=== PATIENT | female | born 1980 | race African-American/Black ===

== ENCOUNTER 2021-04-18 14:14 | Emergency (ER) | payer OTHER ==
[~2021-04-18] VITALS: Ht 172.7 cm; Wt 61.2 kg
--- NOTE | 2021-04-18 14:40 | NUR ---
receved pt 41 yrs female c/o rectale pain and bleeding for 5 days awke and alert no active bleeding at this time seen by dr. sellers
[2021-04-18] MEDS ORDERED: LIDOCAINE 4% TOPICAL 50 ML BOTTLE TP ONE (14:45)
[2021-04-18] MEDS ORDERED: LIDOCAINE 4% TOPICAL 50 ML BOTTLE ONE (14:58)
[2021-04-18 15:56] LABS: *URINE HCG, QUAL NEGATIVE (NEGATIVE)
[2021-04-18] MEDS ORDERED: KETOROLAC TROMETHAMINE 30 MG INJ IVP ONE (16:00)
--- NOTE | 2021-04-18 16:15 | NUR ---
c/o rectale pain tradole 30 mg iv given no rectale active bleeding
[2021-04-18] MEDS ORDERED: KETOROLAC TROMETHAMINE 30 MG INJ ONE (16:16)
[2021-04-18] MEDS ORDERED: MINERAL OIL FLEET ENEMA 133 ML BOTTLE RC ONE ×2 (16:30→16:52)
--- NOTE | 2021-04-18 17:00 | NUR ---
fleet Enema done tolorated procedure will no rectale bleeding
--- NOTE | 2021-04-18 18:18 | NUR ---
pt had normale BM SUCCESS feeling batter and resolve abdomin soft rectale pain controle
[2021-04-18] MEDS ORDERED: HYDR28.316 RC (18:25)
[2021-04-18] MEDS ORDERED: HYDR25SU33 RC ×2 (18:25)
--- NOTE | 2021-04-18 18:45 | NUR ---
d/c instraction given to pt fully and verblized understood d/c home with rx and fallow up care
[2021-04-18 18:54] VITALS: BP 140/78
== END 2021-04-18 19:07 | disposition home or self-care (01) ==
LOC: ER 14:14
DX: K56.41 Fecal impaction (principal); K64.4 Residual hemorrhoidal skin tags; K58.9 Irritable bowel syndrome, unspecified
CPT/HCPCS: 74021; 84703; 96374; 99284; J1885; A4663

== ENCOUNTER 2021-04-28 19:41 | Inpatient (IN) | payer OTHER ==
[~2021-04-28] VITALS: Ht 172.7 cm; Wt 59.9 kg
[~2021-04-28 19:41] MED LIST: HYDR25SU33 RC; HYDR28.316 RC
--- NOTE | 2021-04-28 20:02 | NUR ---
pt came to ER c/o painful hemorrhoids that began on 04/13/2021.
--- NOTE | 2021-04-28 20:08 | NUR ---
DR. CARMEN AT BEDSIDE, MSE IN PROGRESS.
--- NOTE | 2021-04-28 20:24 | NUR ---
MORRIS CARMEN FOR PERINEAL AREA EXAM.
[2021-04-28] MEDS ORDERED: MORPHINE SULFATE 4 MG/1 ML DISP.SYRIN IM ONE (20:30)
[2021-04-28] MEDS ORDERED: MORPHINE SULFATE 4 MG/1 ML DISP.SYRIN ONE (20:33)
[2021-04-28] MEDS ORDERED: IV NORMAL SALINE 1000 ML BAG IV ONE (20:45)
--- NOTE | 2021-04-28 20:56 | NUR ---
pt signed consent form for ct abd pelvis with contrast. labs drawn from iv start. blood sent to the lab.
[2021-04-28 20:58] LABS: HEMATOCRIT 35.6 % (31.2-41.9); MEAN CORPUSCULAR VOLUME 82.1 fL (75.5-95.3); PLATELET COUNT (AUTO) 334 K/uL (179-408)
[2021-04-28] MEDS ORDERED: IV NORMAL SALINE 250 ML IV ONE (21:04)
[2021-04-28] MEDS ORDERED: SWABABLE VALVE TRANSFER SET EA MC ONE (21:04)
[2021-04-28] MEDS ORDERED: IOHEXOL 300MG/ML 100 ML INFUS..BTL ONE (21:04)
[2021-04-28 21:10] LABS: BILIRUBIN,DIRECT 0.2 mg/dL (0.0-0.2); BILIRUBIN,TOTAL 0.8 mg/dL (0.2-1.0); CREATININE 0.7 mg/dL (0.6-1.3); TOTAL PROTEIN, SERUM 7.2 g/dL (6.4-8.2)
[2021-04-28 21:12] LABS: *OCCULT BLOOD STOOL POSITIVE (NEGATIVE)
[2021-04-28 21:15] LABS: POTASSIUM 2.6 mmol/L (3.5-5.1)
--- NOTE | 2021-04-28 21:28 | NUR ---
PT TAKEN DOWN FOR CT.
[2021-04-28] MEDS ORDERED: POTASSIUM CHLORIDE 20 MEQ TAB.PRT.SR PO ONE (21:45)
[2021-04-28] MEDS: MAGNESIUM SULFATE/D5W 100 ML IV SCH ×2 (21:45→22:16)
[2021-04-28] MEDS: POTASSIUM CHLORIDE 50 ML IV SCH ×2 (21:45→23:47)
--- NOTE | 2021-04-28 21:54 | NUR ---
PT RETURNED FROM CT, STABLE CONDITION.
[2021-04-28] MEDS ORDERED: CIPROFLOXACIN IV 400 MG in PREMIXED 1 EACH IV ONE (22:30)
[2021-04-28] MEDS ORDERED: METRONIDAZOLE 500 MG/NS 100 ML PIGGYBACK IV ONE (22:30)
[2021-04-28] MEDS ORDERED: METRONIDAZOLE 500 MG/NS 100ML 100 ML IV ONE (22:34)
--- NOTE | 2021-04-28 22:59 | NUR ---
CALLED DR. SALINAS AT .
--- NOTE | 2021-04-28 23:03 | NUR ---
CALLED DR. PARKS AT [phone], LEFT VOICEMAIL.
--- NOTE | 2021-04-28 23:04 | NUR ---
CALLED [facility] FOR PANEL CALL, DR. RUSTY RAMIREZ.
[2021-04-28] MEDS ORDERED: Z GUARD REMEDY PASTE 57 GM TUBE TOP PRN (23:15)
[2021-04-28] MEDS ORDERED: MAGNESIUM HYDROXIDE 30 ML LIQUID UDC PO PRN (23:15)
[2021-04-28] MEDS ORDERED: ONDANSETRON 4 MG/2 ML VIAL IV PRN (23:15)
[2021-04-28] MEDS ORDERED: IV NS 1000 ML 1,000 ML IV PRN (23:15)
--- NOTE | 2021-04-28 23:43 | NUR ---
DR. PARKS CALLED BACK.
[2021-04-29 00:32] LABS: *BILIRUBIN,URIN NEGATIVE (NEGATIVE); *BLOOD, URINE 2+ (NEGATIVE); *CLARITY,URINE SLIGHTLY CLOUDY (CLEAR); *COLOR,URINE YELLOW (YELLOW); *KETONES,URINE 4+ (NEGATIVE); *UROBILINOGEN,URINE 0.2 E.U./dl (NORMAL); LEUKOCYTE ESTERASE ,URINE NEGATIVE (NEGATIVE); NITRITE, URINE NEGATIVE (NEGATIVE); UGLUCOSE NEGATIVE (NEGATIVE)
[2021-04-29 00:34] LABS: *URINE HCG, QUAL NEGATIVE (NEGATIVE)
--- NOTE | 2021-04-29 00:39 | NUR ---
report given to Khadra STREET pt to go to room 303.
[2021-04-29 00:50] LABS: BACTERIA,URINE NONE SEEN /HPF (NONE SEEN); SQUAMOUS EPITHELIAL CELL,UR FEW /HPF (NONE SEEN)
--- NOTE | 2021-04-29 01:00 | NUR ---
Admitted a 41 years old female with Dx of Sybil rectal abscess. Patient AAOX4. In no apparent distress. Denies any SOB. Complain of rectal pain described as burning and sharp. Patient was given Morphine 4mg IV at the ER. Oral temp of 100.6. Cooling measure provided as well as Tylenol 650mg PO per order. IV site on right hand and left AC intact and patent. KCl IV infusing at this time. Routine admission care done. Plan of care initiated. Safety measure initiated and call light within reached. Will continue to monitor.
--- NOTE | 2021-04-29 01:10 | NUR ---
pt was transferred to room 303 with all belongings. pt in stable condition. admitted to tele unit. Trina VELAZQUEZ and Khadra RN at bedside to receive patient. endorsed that pt needs to have an additional 20meq of kcl to infuse. medication was taken with the pt.
[2021-04-29] MEDS: POTASSIUM CHLORIDE 50 ML IV SCH ×2 (01:21→02:12)
[2021-04-29] MEDS: ACETAMINOPHEN 325 MG TABLET PO PRN ×2 (01:30→20:24)
[2021-04-29 02:21] VITALS: BP 137/88
[2021-04-29 04:00] VITALS: BP 130/60
[2021-04-29] MEDS ORDERED: METRONIDAZOLE 500 MG/NS 100ML 100 ML IV ONE (05:09)
--- NOTE | 2021-04-29 05:49 | NUR ---
Patient AAOx4. In no acute distress. No complain of pain at this time. Denies any SOB. IV site on right AC and left wrist intact and patent. No adverse reaction noted from IV antibiotic. Needs attended to and met. Safety measure maintained and call light within reached.
[2021-04-29] MEDS ORDERED: METRONIDAZOLE 500 MG/NS 100ML 500 MG in PREMIXED 1 EACH IV SCH (06:00)
[2021-04-29 06:27] LABS: MEAN CORPUSCULAR HEMOGLOBIN 26.6 uug (24.7-32.8); PLATELET COUNT (AUTO) 304 K/uL (179-408)
[2021-04-29 06:40] LABS: ALANINE AMINOTRANSFERASE 10 U/L (14-59); ALKALINE PHOSPHATASE 49 U/L (50-136); ASPARTATE AMINOTRANSFERASE 9 U/L (15-37); BILIRUBIN,TOTAL 0.8 mg/dL (0.2-1.0); CARBON DIOXIDE 21 mmol/L (21-32); CHLORIDE 103 mmol/L (98-107); CREATININE 0.6 mg/dL (0.6-1.3); GLUCOSE 92 mg/dL (74-106); MAGNESIUM 2.1 mg/dL (1.8-2.4); PHOSPHOROUS 2.7 mg/dL (2.5-4.9); UREA NITROGEN, BLOOD 5 mg/dL (7-18)
--- NOTE | 2021-04-29 07:34 | NUR ---
Patient received in bed, speaking on the phone. A&Ox4. On room air. No signs of acute distress noted. Denies pain/discomfort at this time. Left wrist 22g running NS @75cc/hr. Right AC 20g intact and flushed. Safety measures maintained. Call light within reach. Will continue to monitor
[2021-04-29] MEDS ORDERED: CIPROFLOXACIN IV 400 MG in PREMIXED 1 EACH IV SCH (09:00)
[2021-04-29] MEDS ORDERED: MORPHINE SULFATE 2 MG/1 ML DISP.SYRIN IV PRN (11:30)
[2021-04-29 12:01] VITALS: BP 134/86
--- NOTE | 2021-04-29 12:55 | NUR ---
Pt seen by Dr Mancia. New orders noted
[2021-04-29] MEDS: PIPERACILLIN SODIUM/TAZOBACTAM 3.375 G in IV DEXTROSE 5% 100 ML IV SCH ×2 (15:19→22:53)
[2021-04-29] MEDS: MORPHINE SULFATE 4 MG/1 ML DISP.SYRIN IV PRN (15:28)
[2021-04-29 16:01] VITALS: BP 112/72
[2021-04-29] MEDS: IV D5/ 0.9% NACL 1,000 ML IV PRN ×2 (17:51→20:16)
[2021-04-29 20:00] VITALS: BP 124/74
--- NOTE | 2021-04-29 20:31 | NUR ---
Left wrist 22g running D5NS @ 75 cc/hr. PRN Tylenol administered for temp 0f 99.5, will continue to monitor
[2021-04-30 04:00] VITALS: BP 122/70
[2021-04-30] MEDS: PIPERACILLIN SODIUM/TAZOBACTAM 3.375 G in IV DEXTROSE 5% 100 ML IV SCH ×3 (05:36→21:15)
--- NOTE | 2021-04-30 05:54 | NUR ---
Patient to undergo I&D of heidy rectal abscess in AM. Consent formed signed, preop checklist complete
[2021-04-30] MEDS: MORPHINE SULFATE 4 MG/1 ML DISP.SYRIN IV PRN ×3 (06:23→16:45)
[2021-04-30] MEDS ORDERED: MIDAZOLAM HCL 2 MG/2 ML VIAL ONE (07:53)
[2021-04-30] MEDS ORDERED: FENTANYL CITRATE 250 MCG/5 ML AMPUL ONE (07:53)
[2021-04-30] MEDS ORDERED: HYDROMORPHONE 2 MG/1 ML DISP.SYRIN ONE (07:54)
--- NOTE | 2021-04-30 08:00 | NUR ---
Patient AAOx4. In no acute distress. No complain of pain at this time. Denies any SOB. Needs attended to and met. Safety measure maintained and call light within reached.
--- NOTE | 2021-04-30 08:29 | NUR ---
Patient was transfer to OR accompany by 2 nurse to undergo I&D of heidy rectal abscess with DR Wilson. Consent formed signed, preop checklist complete
[2021-04-30] MEDS ORDERED: LIDOCAINE-MPF 2% 5 ML VIAL IJ ONE (10:06)
[2021-04-30] MEDS ORDERED: METOCLOPRAMIDE HCL 10 MG/2 ML VIAL IV ONE (10:06)
[2021-04-30] MEDS ORDERED: CEFAZOLIN 1 G VIAL IM ONE (10:06)
[2021-04-30] MEDS ORDERED: SEVOFLURANE 250 ML BOTTLE IH ONE (10:06)
[2021-04-30] MEDS ORDERED: ONDANSETRON 4 MG/2 ML VIAL IV ONE (10:06)
[2021-04-30] MEDS ORDERED: PROPOFOL 200 MG/20 ML BOTTLE IV ONE (10:06)
[2021-04-30] MEDS ORDERED: MEPERIDINE 25 MG/1 ML DISP.SYRIN ONE (10:20)
--- NOTE | 2021-04-30 11:15 | NUR ---
RECEIVED PT. BACK FROM OR VIA BED ACCOMPANIED BY OR 2 RNs. PT IS AWAKE ALERT ORIENTED X4 ,RESPIRATION EVEN AND SPONTANEOUS. O2 SAT 98% at RA S/P I&D. IV INFUSING WELL. RECTAL DRESSING DRY AND INTACT WITH ORDER TO BE CHANGE TILL TOMORROW.PT PLACE ON LIQUID DIET TO PREVENT HARD STOOL.
[2021-04-30 12:06] VITALS: BP 119/72
[2021-04-30 15:48] VITALS: BP 131/74
--- NOTE | 2021-04-30 18:23 | NUR ---
Patient remain AAOx4. In no acute distress. Medicated with Morphine 4 mg /1ml PRN as order for complain of pain at surgical site. Denies any SOB. IV site on right AC and left wrist intact and patent. No adverse reaction noted from IV antibiotic. Ambulated to BR with assist voided x1 . Needs attended and met. Safety measure maintained and call light within reached. father remain at bed side
--- NOTE | 2021-04-30 19:30 | NUR ---
RECEIVED PT AWAKE, ALERT AND ORIENTEDX4. PT IN NO ACUTE DISTRESS. IV INTACT. FAMILY AT BEDSIDE. PT DRESSING INTACT AND SOILED. REINFORCE DRESSING DONE. SAFETY AND COMFORT PROVIDED. WILL CONTINUE TO MONITOR.
[2021-04-30 20:15] VITALS: BP 133/74
[2021-04-30] MEDS: ACETAMINOPHEN 325 MG TABLET PO PRN (20:44)
[2021-05-01] MEDS: MORPHINE SULFATE 4 MG/1 ML DISP.SYRIN IV PRN ×2 (01:38→18:16)
--- NOTE | 2021-05-01 01:48 | NUR ---
AT 0138/h MORPHINE 4MG GIVEN TO PT FOR PAIN ON RECTUM. PT TOLERATED IT WELL. WILL CONTINUE TO MONITOR.
[2021-05-01 04:02] VITALS: BP 104/66
[2021-05-01] MEDS: IV D5/ 0.9% NACL 1,000 ML IV PRN (06:12)
[2021-05-01] MEDS: PIPERACILLIN SODIUM/TAZOBACTAM 3.375 G in IV DEXTROSE 5% 100 ML IV SCH ×3 (06:13→21:47)
--- NOTE | 2021-05-01 06:27 | NUR ---
PT SLEPT INTERMITTENTLY. PT IN NO ACUTE DISTRESS. IV INTACT. DRESSING CHANGED. PT IN NO ACUTE DISTRESS.PTASKING FOR MEDICAL REORDS AND QUESTION REGARDING IT. TOLD HER THAT MEDICAL RECORDS WILL OPEN AT 0800H. PT STABLE. SAFETY AND COMFORT PROVIDED. ALL NEEDS ARE MET. WILL ENDORSE TO INCOMING NURSE FOR CONTINUITY OF CARE.
[2021-05-01 07:54] LABS: MEAN CORPUSCULAR HEMOGLOBIN 26.7 uug (24.7-32.8); PLATELET COUNT (AUTO) 358 K/uL (179-408)
[2021-05-01 08:10] LABS: BILIRUBIN,TOTAL 0.4 mg/dL (0.2-1.0); CREATININE 0.7 mg/dL (0.6-1.3); MAGNESIUM 1.8 mg/dL (1.8-2.4); PHOSPHOROUS 3.5 mg/dL (2.5-4.9); POTASSIUM 3.3 mmol/L (3.5-5.1); TOTAL PROTEIN, SERUM 6.7 g/dL (6.4-8.2)
[2021-05-01 08:42] LABS: THYROID STIMULATING HORMONE 0.954 mIU/mL (0.358-3.740)
[2021-05-01] MEDS ORDERED: POTASSIUM CHLORIDE 20 MEQ TAB.PRT.SR PO ONE (09:00)
[2021-05-01] MEDS: MIRALAX 17 GM POWD.PACK PO SCH (09:22)
[2021-05-01 11:23] VITALS: BP 123/75
[2021-05-01] MEDS ORDERED: SODIUM HYPOCHLORITE 0.25% (HALF STRENGTH) 480 ML BOTTLE TOP SCH (12:00)
[2021-05-01] MEDS: SODIUM HYPOCHLORITE 0.125% (QUARTER STRENGTH) 473 ML BOTTLE TP SCH (13:07)
[2021-05-01] MEDS: ENSURE CLEAR 240 ML LIQUID (MIX BERRY) PO SCH ×2 (13:07→17:10)
[2021-05-01 15:13] VITALS: BP 110/67
[2021-05-01 16:20] LABS: IRON, SERUM 11 ug/dL (50-175)
--- NOTE | 2021-05-01 17:25 | NUR ---
PT STABLE THROUGHOUT THE SHIFT. DENIES ACUTE DISTRESS. PIV INTACT WITH D5NS RUNNING AT 75CC/HR. DRESSING CHANGED, INTACT WITH NO S/S OF INFECTION. PT TOLERATED WELL. PAIN MANAGED WELL. SAFETY MEASURES IN PLACE. WILL ENDORSE TO ONCOMING NURSE.
--- NOTE | 2021-05-01 19:30 | NUR ---
RECEIVED PT AWAKE, ALERT AND ORIENTEDX4. PT IN NO ACUTE DISTRESS. IV INTACT. SAFETY AND COMFORT PROVIDED. WILL CONTINUE TO MONITOR.
[2021-05-01 20:00] VITALS: BP 118/55
[2021-05-01] MEDS: FERROUS GLUCONATE 324 MG TABLET PO SCH (22:06)
[2021-05-02 04:00] VITALS: BP 114/80
[2021-05-02] MEDS: PIPERACILLIN SODIUM/TAZOBACTAM 3.375 G in IV DEXTROSE 5% 100 ML IV SCH ×3 (05:28→21:52)
[2021-05-02] MEDS: MORPHINE SULFATE 4 MG/1 ML DISP.SYRIN IV PRN ×4 (05:29→20:44)
--- NOTE | 2021-05-02 05:44 | NUR ---
PT OBSERVED TO HAVE HER MENSTRUATION.
--- NOTE | 2021-05-02 05:47 | NUR ---
PT SLEPT INTERMITTENTLY. PT IN NO ACUTE DISTRESS. IV INTACT. DRESSING CHANGED. PRESCRIBED MEDICATION GIVEN AND PT TOLERATED IT WELL. AT 0529H MORPHINE PRN GIVEN FOR PAIN. PT TOLERATED IT WELL. SAFETY AND COMFORT PROVIDED. WILL ENDORSE TO INCOMING NURSE FOR CONTINUITY OF CARE.
[2021-05-02] MEDS: PANTOPRAZOLE SODIUM 40 MG TABLET.DR PO SCH (06:12)
[2021-05-02] MEDS: MIRALAX 17 GM POWD.PACK PO SCH (08:55)
[2021-05-02] MEDS: ENSURE CLEAR 240 ML LIQUID (MIX BERRY) PO SCH ×3 (08:56→17:06)
[2021-05-02] MEDS: SODIUM HYPOCHLORITE 0.125% (QUARTER STRENGTH) 473 ML BOTTLE TP SCH (09:02)
[2021-05-02] MEDS: FERROUS GLUCONATE 324 MG TABLET PO SCH ×2 (09:14→20:44)
[2021-05-02 10:58] VITALS: BP 113/75
--- NOTE | 2021-05-02 12:00 | NUR ---
WOUND TREATMENT COMPLETED, TOLERATED WELL. PREMEDICATED PRIOR TO TREATMENT.
[2021-05-02 12:27] LABS: HEMATOCRIT 34.2 % (31.2-41.9); MEAN CORPUSCULAR HEMOGLOBIN 26.8 uug (24.7-32.8); MEAN CORPUSCULAR VOLUME 81.6 fL (75.5-95.3); PLATELET COUNT (AUTO) 486 K/uL (179-408)
[2021-05-02] MEDS: IV D5/ 0.9% NACL 1,000 ML IV PRN (12:54)
--- NOTE | 2021-05-02 13:00 | NUR ---
PATIENT SEEN BY TUAN BAXTER W/ ORDER TO CONTINUE WITH CURRENT TX ORDER AND SITZ BATH.
[2021-05-02 15:21] VITALS: BP 105/73
--- NOTE | 2021-05-02 19:46 | NUR ---
Received patient resting in bed, on right side. Patient AAO x4, able to make needs known. Denies any pain or discomfort at this time. On RA, denies any SOB. States previous Morphine dose is effective for pain management. Dressing in place and intact to perianal abscess. Safety measures initiated, call light within reach.
[2021-05-02 20:16] VITALS: BP 141/91
[2021-05-03 04:26] VITALS: BP 136/84
[2021-05-03] MEDS: MORPHINE SULFATE 4 MG/1 ML DISP.SYRIN IV PRN ×3 (05:29→20:38)
[2021-05-03] MEDS: PIPERACILLIN SODIUM/TAZOBACTAM 3.375 G in IV DEXTROSE 5% 100 ML IV SCH ×3 (05:30→21:06)
[2021-05-03] MEDS: PANTOPRAZOLE SODIUM 40 MG TABLET.DR PO SCH (06:13)
--- NOTE | 2021-05-03 06:29 | NUR ---
Patient slept intermittently this shift. AAO x4, able to make needs known. C/O pain 2-4/10 to perianal area while at rest, 10/10 during treatment. Morphine IV given prior to treatment, effective. Wet dressing replaced 2 times this shift after 2 bowel movements. Continues to have serosanguinous drainage to incision sites. Patient noted to have 3 sites. Dry dressing in place to secure the area. On RA, denies any SOB. Safety measures continued, call light within reach.
--- NOTE | 2021-05-03 08:30 | NUR ---
Received pt from temperer. Pt is a/o x 4, stable on room air. Pt has a wound that has been changed during temperer and a nabeel drain. Pt remains on clear liquids. No signs of acute distress or discomfort. Comfort measures provided for pt, call light within reach. No complaint of pain at this time. Will continue to monitor pt and change dressing as needed.
[2021-05-03] MEDS: MIRALAX 17 GM POWD.PACK PO SCH (09:00)
[2021-05-03] MEDS: FERROUS GLUCONATE 324 MG TABLET PO SCH ×2 (09:24→20:38)
[2021-05-03] MEDS: ENSURE CLEAR 240 ML LIQUID (MIX BERRY) PO SCH ×3 (09:25→16:06)
[2021-05-03] MEDS: SODIUM HYPOCHLORITE 0.125% (QUARTER STRENGTH) 473 ML BOTTLE TP SCH (09:27)
[2021-05-03 11:19] VITALS: BP 117/76
[2021-05-03 15:57] VITALS: BP 140/78
[2021-05-03 20:23] VITALS: BP 137/77
[2021-05-03] MEDS: IV D5/ 0.9% NACL 1,000 ML IV PRN (21:06)
--- NOTE | 2021-05-03 21:28 | NUR ---
Received patient in room accompanied by father. AAO x4, able to make needs known. C/O discomfort to perianal, request for Morphine IV after she moves her bowels in order to tolerate wound treatment better. On RA, denies any SOB. Dressing in place and intact to perianal abscess. IV to left hand intact and patent, infusing D5 NS at 75cc/hr. Safety measures initiated, call light within reach.
[2021-05-04] MEDS: MORPHINE SULFATE 4 MG/1 ML DISP.SYRIN IV PRN ×3 (04:41→18:37)
[2021-05-04 04:50] VITALS: BP 123/76
[2021-05-04] MEDS: PIPERACILLIN SODIUM/TAZOBACTAM 3.375 G in IV DEXTROSE 5% 100 ML IV SCH (05:49)
--- NOTE | 2021-05-04 05:59 | NUR ---
Patient slept intermittently this shift. AAO x4, able to make needs known.C/O discomfort to perineal area, somewhat relieved when laying on sides. Morphine 4mg IV given prior to treatment, effective. Wet packed dressing replaced 2 times to 3 incision sites this shift after 2 bowel movements. Kita drain in place. Continues to have serosanguinous drainage to incision sites. Dry dressing in place to secure area. On RA, denies any SOB. Safety measures continued, call light within reach.
[2021-05-04] MEDS: PANTOPRAZOLE SODIUM 40 MG TABLET.DR PO SCH (06:05)
[2021-05-04 07:29] LABS: HEMATOCRIT 31.2 % (31.2-41.9); MEAN CORPUSCULAR HEMOGLOBIN 26.7 uug (24.7-32.8); MEAN CORPUSCULAR VOLUME 81.6 fL (75.5-95.3); PLATELET COUNT (AUTO) 549 K/uL (179-408)
[2021-05-04 07:57] LABS: CREATININE 0.8 mg/dL (0.6-1.3); MAGNESIUM 1.9 mg/dL (1.8-2.4); PHOSPHOROUS 3.8 mg/dL (2.5-4.9); POTASSIUM 3.3 mmol/L (3.5-5.1)
--- NOTE | 2021-05-04 08:30 | NUR ---
Pt is awake, A/O x4. IV silt is intact. Dressing is intact. Pt is able to use the bathroom. Pt declined MIralax, saying her stools are too loose. No signs of infection. Pt is able to state her needs.
[2021-05-04] MEDS: FERROUS GLUCONATE 324 MG TABLET PO SCH ×2 (08:34→22:05)
[2021-05-04] MEDS: ENSURE CLEAR 240 ML LIQUID (MIX BERRY) PO SCH ×3 (08:41→18:43)
[2021-05-04] MEDS: SODIUM HYPOCHLORITE 0.125% (QUARTER STRENGTH) 473 ML BOTTLE TP SCH (08:41)
[2021-05-04] MEDS: MIRALAX 17 GM POWD.PACK PO SCH (08:41)
[2021-05-04] MEDS ORDERED: POTASSIUM CHLORIDE 20 MEQ TAB.PRT.SR PO ONE ×2 (09:45→13:00)
[2021-05-04 11:36] VITALS: BP 121/77
[2021-05-04] MEDS: AMOXICILLIN-CLAVUL 875-125MG TABLET PO SCH ×2 (12:53→22:05)
--- NOTE | 2021-05-04 13:00 | NUR ---
Dressing was changed. Wounds are cleaned and repacked. serosanguineous discharge noted. Sites were cleaned and packed with strips soaked with Dakins solution, covered with dry dressing.
[2021-05-04 15:29] VITALS: BP 130/70
--- NOTE | 2021-05-04 19:30 | NUR ---
AO x 4, on room air, patient lying on side, family member by bedside, vocalizes all her needs, IV site has redness and patient is c/o pain, IV line removed, no acute distress noted at this time. Call lights within reach, safety measures initiated.
[2021-05-04 20:25] VITALS: BP 129/69
[2021-05-04] MEDS ORDERED: ACETAMINOPHEN 650 MG SUPP.RECT RC PRN (22:15)
[2021-05-05] MEDS: MORPHINE SULFATE 4 MG/1 ML DISP.SYRIN IV PRN ×5 (00:33→22:08)
[2021-05-05] MEDS: IV D5/ 0.9% NACL 1,000 ML IV PRN ×2 (00:37→20:47)
[2021-05-05 04:25] VITALS: BP 126/81
[2021-05-05] MEDS: PANTOPRAZOLE SODIUM 40 MG TABLET.DR PO SCH (06:07)
--- NOTE | 2021-05-05 06:20 | NUR ---
AO x 4, on room air O2 saturating at 98%, Midline inserted, intact and patent. IV hydration continuing, tolerating well. Compliant with care and medications. Wound care completed on left, right, and middle of the perirectal area, no signs of acute distress. call lights within reach, safety measures maintained, will endorse to am shift for continuity of care.
[2021-05-05] MEDS: MIRALAX 17 GM POWD.PACK PO SCH (08:43)
[2021-05-05] MEDS: ENSURE CLEAR 240 ML LIQUID (MIX BERRY) PO SCH ×3 (09:52→16:40)
[2021-05-05] MEDS: SODIUM HYPOCHLORITE 0.125% (QUARTER STRENGTH) 473 ML BOTTLE TP SCH (09:52)
[2021-05-05] MEDS: AMOXICILLIN-CLAVUL 875-125MG TABLET PO SCH ×2 (09:52→20:41)
[2021-05-05] MEDS: FERROUS GLUCONATE 324 MG TABLET PO SCH ×2 (09:52→20:41)
[2021-05-05] MEDS ORDERED: POTASSIUM CHLORIDE 20 MEQ TAB.PRT.SR PO ONE (11:15)
[2021-05-05 11:29] VITALS: BP 129/79
--- NOTE | 2021-05-05 14:55 | NUR ---
Pt is a/o x 4, father at bedside. Pt wound has been cleaned and repacked. All materials at bedside. Pt received one dose of morphine during dressing change. No complaint of pain otherwise and no signs of acute distress. Pt is stable on room air, received one time dose of potassium PO, potassium levels 3.3 this am. Comfort measure provided, call light within reach. Will continue to monitor.
[2021-05-05 15:25] VITALS: BP 133/93
--- NOTE | 2021-05-05 18:47 | NUR ---
Patient requested to have dressing on wound changed, cleaned and repacked wound on buttocks, tolerated well. Father at bedside, comfort measures provided, call light within reach. IV patent and intact running fluids. No complaint of pain, no signs of acute distress or discomfort. Will endorse to nursing program coordinator.
--- NOTE | 2021-05-05 19:25 | NUR ---
Received pt lying in bed, father by bedside, AO x 4, able to state all needs, on room air, IV intact and patent. No signs of acute distress. Denies pain. Call lights within reach, safety measures initiated. Will continue to monitor.
[2021-05-05 20:21] VITALS: BP 144/70
[2021-05-06] MEDS: MORPHINE SULFATE 4 MG/1 ML DISP.SYRIN IV PRN ×4 (02:16→22:44)
[2021-05-06] MEDS: PANTOPRAZOLE SODIUM 40 MG TABLET.DR PO SCH (06:02)
[2021-05-06 06:10] VITALS: BP 158/84
--- NOTE | 2021-05-06 06:44 | NUR ---
Slept intermittently throughout the night, AO x 4, on room air saturating at 99% , Midline intact and patent, on IV hydration, wound tx given, compliant with medication and care. Pain medication given. Pain 3/10. No signs of acute distress. Call lights within reach, safety measures maintained, will endorse to am shift.
[2021-05-06 07:22] LABS: HEMATOCRIT 32.2 % (31.2-41.9); MEAN CORPUSCULAR HEMOGLOBIN 26.6 uug (24.7-32.8); MEAN CORPUSCULAR VOLUME 83.4 fL (75.5-95.3); PLATELET COUNT (AUTO) 528 K/uL (179-408)
[2021-05-06 07:51] LABS: CREATININE 0.7 mg/dL (0.6-1.3); MAGNESIUM 1.7 mg/dL (1.8-2.4); PHOSPHOROUS 2.9 mg/dL (2.5-4.9); POTASSIUM 3.2 mmol/L (3.5-5.1)
[2021-05-06] MEDS: MIRALAX 17 GM POWD.PACK PO SCH (09:00)
[2021-05-06] MEDS: ENSURE CLEAR 240 ML LIQUID (MIX BERRY) PO SCH ×3 (09:00→17:43)
[2021-05-06] MEDS: FERROUS GLUCONATE 324 MG TABLET PO SCH ×2 (10:12→20:15)
[2021-05-06] MEDS: AMOXICILLIN-CLAVUL 875-125MG TABLET PO SCH ×2 (10:12→20:15)
[2021-05-06] MEDS: SODIUM HYPOCHLORITE 0.125% (QUARTER STRENGTH) 473 ML BOTTLE TP SCH (10:13)
[2021-05-06] MEDS ORDERED: HYDR-3972 PO (10:51)
[2021-05-06] MEDS ORDERED: AMOX1TAB16 PO (10:51)
[2021-05-06] MEDS ORDERED: DOCU-141 PO (10:51)
[2021-05-06] MEDS: MAGNESIUM SULFATE/D5W 100 ML IV SCH ×2 (11:13→12:22)
[2021-05-06] MEDS: IV D5/ 0.9% NACL 1,000 ML IV PRN (11:16)
[2021-05-06 11:32] VITALS: BP 136/90
[2021-05-06] MEDS: POTASSIUM CHLORIDE 50 ML IV SCH ×4 (12:00→14:00)
[2021-05-06] MEDS ORDERED: POTASSIUM CHLORIDE 20 MEQ TAB.PRT.SR PO ONE (14:30)
[2021-05-06] MEDS ORDERED: POTASSIUM CHLORIDE 10 MEQ TAB.PRT.SR PO ONE (14:30)
[2021-05-06 16:00] VITALS: BP 141/90
--- NOTE | 2021-05-06 19:30 | NUR ---
AO x 4, on room air, father is by bedside, IV intact and patent. No signs of acute distress. Denies any pain or discomfort at this time. Call lights within reach, safety measures initiated.
[2021-05-06 20:00] VITALS: BP 142/96
[2021-05-07 04:00] VITALS: BP 140/93
[2021-05-07] MEDS: MORPHINE SULFATE 4 MG/1 ML DISP.SYRIN IV PRN ×4 (04:22→18:11)
[2021-05-07] MEDS: IV D5/ 0.9% NACL 1,000 ML IV PRN (05:18)
--- NOTE | 2021-05-07 05:40 | NUR ---
slept intermittently throughout the night, AO x 4, on room air saturating at 100%, IV intact and patent on ODILON midline, wound tx done, tolerated well, compliant with medication and care. No signs of acute distress. Call lights within reach, safety measures maintained. Will endorse to am shift.
[2021-05-07] MEDS: PANTOPRAZOLE SODIUM 40 MG TABLET.DR PO SCH (06:03)
[2021-05-07 07:22] LABS: CREATININE 0.7 mg/dL (0.6-1.3); MAGNESIUM 2.1 mg/dL (1.8-2.4); POTASSIUM 3.5 mmol/L (3.5-5.1)
[2021-05-07] MEDS: FERROUS GLUCONATE 324 MG TABLET PO SCH ×2 (08:39→20:05)
[2021-05-07] MEDS: AMOXICILLIN-CLAVUL 875-125MG TABLET PO SCH ×2 (08:39→20:05)
[2021-05-07] MEDS: MIRALAX 17 GM POWD.PACK PO SCH (08:41)
[2021-05-07] MEDS: ENSURE CLEAR 240 ML LIQUID (MIX BERRY) PO SCH ×3 (08:42→17:00)
[2021-05-07] MEDS: SODIUM HYPOCHLORITE 0.125% (QUARTER STRENGTH) 473 ML BOTTLE TP SCH (08:54)
[2021-05-07 12:00] VITALS: BP 131/79
[2021-05-07 16:00] VITALS: BP 132/86
--- NOTE | 2021-05-07 18:00 | NUR ---
new order for discharge, patient to be transferred to [facility].
--- NOTE | 2021-05-07 18:30 | NUR ---
All discharge information given to patient, reviewed physician instructions, patients states understanding. reminded patient to "Continue with oral antibiotics. follow up with colorectal surgeon and primary healthcare provider after discharge. Continue with current wound care. Follow up with health care provider for vaccinations if needed. Return to nearest ER or call 911 if symptoms worse." patient again states understanding. Patient inventory list checked all belongings accounted for.
--- NOTE | 2021-05-07 19:00 | NUR ---
aj davis spoke with alison STREET and report was given all questions answered.
--- NOTE | 2021-05-07 19:12 | NUR ---
Received patient sitting in bed with father at bedside, no acute distress noted at this time. Patient denies chest pain, SOB or dizziness. Currently on room air, saturating at 100%. IV on right UA midline has been removed.Patient is ready for D/C, D/C checklist have been completed by AM shift. Await warehouse order picker by [facility].
--- NOTE | 2021-05-07 19:30 | NUR ---
Called [facility] [phone] to follow up regarding patient's pick up attendant time and transfer to [facility]. Esdras advised patient will be picked up in 30-60 minutes.
[2021-05-07 20:00] VITALS: BP 149/86
[2021-05-07] MEDS: ACETAMINOPHEN 325 MG TABLET PO PRN (21:38)
--- NOTE | 2021-05-07 21:40 | NUR ---
Patient complained of pain, gave tylenol 325mg PO (2tablets), to relieve pain. Sending V/S were taken, blood pressure was slightly elevated 149/86mmHg due to mild pain and anxiety. Safety and comfort measures were maintained. Patient was picked up by ELLIOTT in a gurney at 21:40. Discharge packet containing patient's medical record and disease process health teaching was given to the patient. All other needs were attended to.
== END 2021-05-07 22:22 | DRG 720 ==
LOC: ER 19:43 → TELE3 23:55 → MEDSURG3 23:57
PROVIDERS: ADMIT Internal Medicine; ATTEND Nurse Practitioner Acute Care
PROC: 0D9P30Z Drainage of Rectum with Drainage Device, Percutaneous Approach (ICD-10-PCS; principal; 2021-04-30)
PROC: 05H933Z Insertion of Infusion Device into Right Brachial Vein, Percutaneous Approach (ICD-10-PCS; 2021-05-05)
DX: A41.9 Sepsis, unspecified organism (principal); E44.0 Moderate protein-calorie malnutrition; K61.2 Anorectal abscess; E87.6 Hypokalemia; K58.9 Irritable bowel syndrome, unspecified; D50.9 Iron deficiency anemia, unspecified; K64.4 Residual hemorrhoidal skin tags; K64.8 Other hemorrhoids; D25.0 Submucous leiomyoma of uterus; Z20.822 Contact with and (suspected) exposure to COVID-19; Z82.49 Family history of ischemic heart disease and other diseases of the circulatory system; D25.9 Leiomyoma of uterus, unspecified
CPT/HCPCS: 36415; 83550; 83605; 83690; 83735; 84100; 84443; 84703; 85025; 85730; 87040; 87070; 87077; 87086; 93005; 97161; A4217; A4649; G0378; J0690; J0744; J1170; J2175; J2250; J2270; J2405; J2543; J2765; J3010; J3475; J3480; J3490; J7030; J7040; J7042; J7050; J7060; Q9967